=== PATIENT | male | born 1990 | race Caucasian/White ===

== ENCOUNTER 2020-11-10 12:47 | Emergency (ER) | payer OTHER ==
[~2020-11-10] VITALS: Ht 172.7 cm; Wt 72.6 kg
[2020-11-10 12:50] VITALS: BP 95/65
--- NOTE | 2020-11-10 13:26 | NUR ---
AMBULATED TO BED 12
[2020-11-10] MEDS ORDERED: LIDOCAINE MPF 1% 10 MG/ML VIAL INJ ONE (13:45)
--- NOTE | 2020-11-10 13:51 | NUR ---
30 YEAR OLD MALE COMPLAINS OF LEFT EAR ABSCESS X 2 WEEKS. PT STATES SITE HAS BEEN GETTING PROGRESSIVELY BIGGER. SITE IS WITH INFLAMMATION, RED. PT AOX4, BREATHING EVEN AND UNLABORED, SKIN WARM AND DRY. BED IN LOWEST POSITION, LOCKED, BED RAIL UPX1. PMH - DENIES ALLERGIES - NKA
--- NOTE | 2020-11-10 14:40 | NUR ---
Patient discharged with v/s stable. Written and verbal after care instructions about skin abscess given and explained. Patient verbalized understanding. Ambulatory with steady gait. All questions addressed prior to discharge. Advised to follow up with PMD.
[2020-11-10 14:41] VITALS: BP 95/65
== END 2020-11-10 14:40 | disposition home or self-care (01) ==
LOC: MED 12:47
DX: H60.02 Abscess of left external ear (principal)
CPT/HCPCS: 10060; 99282; J2001